=== PATIENT | female | born 1985 | race Caucasian/White ===

== ENCOUNTER 2017-10-23 14:04 | Emergency (ER) | payer MEDICAID, SELFPAY ==
[2017-10-23 14:05] VITALS: BP 114/75; PULSE 78; RESP 16; TEMP 36.6; O2SAT 99; BMI 27.9
--- NOTE | 2017-10-23 15:04 | ED.VISSUMM ---
- ER Visit Summary Date of Service: 10/23/17 Chief Complaint: Vaginal abscess History of Present Illness: The patient is a 32 F days for the past 3 days she has been gradually developing a swelling just to lateral to her left labia majora. She states she has never had anything like this before. She saw Dr. Evon downey reportedly 1 year ago for vaginal bleeding. She has not called anybody for this. No fevers. No prior history of MRSA or abscesses. Physical Examination: Afebrile vital signs are stable Gen: Well-nourished well-developed Head: Normocephalic atraumatic Eyes: Perrl EOMI ENT: TMs clear no rhinorrhea moist mucous membranes Neck: Supple no lymphadenopathy no JVD nontender CVS: Regular rate rhythm no murmurs normal S1-S2 Respiratory: No distress clear to auscultation bilaterally chest nontender Abdomen: Soft nontender nondistended normal bowel sounds no masses : There is a round less than dime size area of swelling just subcutaneous and lateral to the left labia majora. There is overlying erythema. There is no fluctuance. There is no pointing. Is tender to palpation. Back: Nontender Extremity: Nontender no edema Skin: Normal color no rash Neuro: alert orientated ?3 CN II-XII intact normal strength sensation reflexes gait cerebellar Psych: Normal affect normal mood Emergency Department Course and Treatment: I do not see a drainable abscess at this time. She will be started on Bactrim and Keflex and a few Alvaton for pain. She will need to follow-up with Dr. Evon downey. Impression: 1. Early left labial abscess This note was generated with [employer] dictation software. It may contain incorrect words, spelling, and punctuation that were not noted in review of the chart prior to signing ED Disposition - Plan for ED Patient: Disposition: Home or Assisted Living Chief Complaint: Abscess Instructions: ED Staph Infec Abx Tx Only Prescriptions: Oxycodone HCl/Acetaminophen [Percocet 5/325] 1 tab PO Q6H PRN PRN 3 Days #12 tab PRN Reason: Pain Cephalexin [Keflex] 500 mg PO Q6 #40 cap Smz/Tmp Ds [Bactrim Ds] 1 tab PO BID #10 tab Referrals: Care Physician,No Primary [Primary Care Provider] - Omayra Stratton MD [STAFF PHYSICIAN] - (call today to schedule follow up appointment)
[2017-10-23 15:26] VITALS: BP 113/76; PULSE 83; RESP 14; O2SAT 99
--- NOTE | 2017-10-23 15:49 | ED.RN ---
CALLED [facility] SPOKE WITH JDUI, TOLD HIM NORCO WAS TO BE CANCELLED, PT WILL BE ARRIVING WITH A PAPER RX FOR PERCOCET.
== END 2017-10-23 15:50 | disposition home or self-care (01) ==
PROVIDERS: Emergency Provider Emergency Medicine
DX: N76.4 Abscess of vulva (principal); Z72.0 Tobacco use
CPT/HCPCS: 99282

== ENCOUNTER 2017-12-05 11:24 | Emergency (ER) | payer MEDICAID, SELFPAY ==
[2017-12-05 11:26] VITALS: BP 126/69; PULSE 82; RESP 16; TEMP 36.9; O2SAT 98; BMI 28.1
--- NOTE | 2017-12-05 12:45 | RAD_ITS ---
STUDY: X-RAY - CERVICAL SPINE REASON FOR EXAM: Female, 32 years old. Several day history of right arm pain. TECHNIQUE: 4 view(s) of the cervical spine were obtained. COMPARISON: None FINDINGS: Normal anterior atlantoaxial articulation. Normal odontoid process. There is straightening of the normal cervical lordosis. Normal vertebral bodies and endplates. Mild degree of disc space narrowing at the C4-C5 level. Normal visualized intervertebral neuroforamina. The soft tissue structures are unremarkable. RAD/Cerv Spine 2 or 3 Views IMPRESSION: There is straightening of the normal cervical lordosis. Mild degree of disc space narrowing at the C4-C5 level. Electronically Signed: Vladimir Bullard MD at 13:49 EDT Tel [phone], Service support ,
--- NOTE | 2017-12-05 12:45 | RAD_ITS ---
STUDY: X-RAY - RIGHT SHOULDER REASON FOR EXAM: Female, 32 years old. Several day history of right upper extremity pain. TECHNIQUE: 4 view(s) of the shoulder. COMPARISON: None. FINDINGS: Normal glenohumeral articulation. Normal acromioclavicular joint. Normal acromion. Normal humeral head and visualized proximal humerus. The soft tissue structures are unremarkable. Normal visualized pulmonary apex. RAD/Shoulder min 2 Views IMPRESSION: Normal x-ray examination of the shoulder. Electronically Signed: Vladimir Bullard MD at 13:58 EDT Tel [phone], Service support ,
[2017-12-05 12:48] VITALS: BP 114/67; PULSE 73; RESP 16; O2SAT 97
--- NOTE | 2017-12-05 12:49 | ED.VISSUMM ---
- ER Visit Summary Date of Service: 12/05/17 Chief Complaint: Right shoulder pain History of Present Illness: The patient is a 32 F with right shoulder pain over 4 days. 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 Denies any other injuries. Physical Examination: Vitals unremarkable. Patient has diffuse tenderness to palpation over her C-spine. She also has diffuse tenderness to palpation of her right shoulder. Inspection is normal. Range of motion normal. Distal strength and sensation normal. No other pertinent findings. Test Results: I have low suspicion for fracture, but given her severe symptoms, x-rays were ordered. Will check C-spine and right shoulder. Emergency Department Course and Treatment: Patient treated with naproxen while awaiting results. Trace unremarkable. Continue anti-inflammatories at home. Muscle relaxers as needed. Follow-up with primary care for further care. Treatment Plan: As above Disposition: Discharge Impression: 1. Right shoulder strain 2. Cervical strain This note was generated with [employer] dictation software. It may contain incorrect words, spelling, and punctuation that were not noted in review of the chart prior to signing ED Disposition - Plan for ED Patient: Chief Complaint: Upper Extremity Injury Referrals: NOT,DEFINED [NON-STAFF] -
--- NOTE | 2017-12-05 14:32 | ED.DEP ---
ED Disposition - Plan for ED Patient: Chief Complaint: Upper Extremity Injury Instructions: ED Sprain Shoulder Prescriptions: Methocarbamol [Robaxin] 500 mg PO TID #9 tab Referrals: Herlinda Galvan DO [STAFF PHYSICIAN] -
--- NOTE | 2017-12-05 14:32 | ED.RN ---
pt upset because she said that she has been waiting for ever to be released. pt has calmed down and is happy with treatment plan
[2017-12-05 14:42] VITALS: BP 112/97; PULSE 75; RESP 14; O2SAT 98
--- NOTE | 2017-12-05 14:43 | ED.RN ---
pt is still asking to talk to education manager about dr mckinney. per carmen nurse information was given to pt. pt states that the dr should have been faster and done something sooner because it isn't fair to her and her sister that has an appt with the tv people to sit in the er for 2 hours
== END 2017-12-05 14:43 | disposition home or self-care (01) ==
LOC: ED 13:23
PROVIDERS: Emergency Provider Emergency Medicine
DX: S16.1XXA Strain of muscle, fascia and tendon at neck level, initial encounter (principal); S46.811A Strain of other muscles, fascia and tendons at shoulder and upper arm level, right arm, initial encounter; F17.210 Nicotine dependence, cigarettes, uncomplicated; X50.3XXA Overexertion from repetitive movements, initial encounter; Y93.89 Activity, other specified; Y92.89 Other specified places as the place of occurrence of the external cause; Y99.8 Other external cause status
CPT/HCPCS: 72040; 73030; 99282

== ENCOUNTER 2018-01-21 12:03 | Emergency (ER) | payer MEDICAID, SELFPAY ==
[2018-01-21 12:04] VITALS: BP 125/61; PULSE 82; RESP 18; TEMP 36.9; O2SAT 99; BMI 29.2
--- NOTE | 2018-01-21 12:29 | ED.DCSUM_ITS ---
- ER Visit Summary Date of Service: 01/21/18 Chief Complaint: Left groin] History of Present Illness: The patient is a 33 F [presents the emergency department with complaint of soft tissue swelling to her left groin for about a month. Patient states that she was seen in the emergency department about 3 weeks ago and was put on antibiotics however she did not follow up with anybody. She did not feel the antibiotics helped much. Patient denies any fevers. Patient complains of pain with walking.] Physical Examination: [HEENT-PERRLA, EOMI. Cranial nerves II through XII grossly intact. TMs clear. Mucous membranes moist. No adenopathy. Cardiovascular-regular rate and rhythm without murmur or ectopy Lungs-clear to auscultation, chest wall stable without crepitus or subcu emphysema Abdomen-normoactive bowel sounds, soft, nontender, no rebound or rigidity, no peritoneal signs. -patient has a soft tissue swelling in the left groin as well as another smaller soft tissue swelling to the left labia majora that is slightly tender to palpation. There is no cellulitis. The area is slightly fluctuant and tender to palpation. Extremities-intact ?4, normal range of motion, normal pulses, atraumatic] Test Results: [None indicated] Emergency Department Course and Treatment: [Patient was offered an incision and drainage to which she agreed. Area of the left groin sterilely draped and prepped. Cleansed with Shur-Clens. Anesthetized locally with 1% lidocaine total 2 cc used. Using an 11 blade a 1.5 cm incision was made into the larger of the 2 suspected abscesses and a 1 cm incision made onto the labia majora suspected abscess. Moderate purulent debris expressed. I used curved hemostats to undermine the soft tissues.] Clean dressing applied. Treatment Plan: [Patient will be referred to Dr. Persaud and will be started on clindamycin] Disposition: [Discharged home in stable condition] Impression: [Abscess with incision and drainage left groin] This note was generated with [employer] dictation software. It may contain incorrect words, spelling, and punctuation that were not noted in review of the chart prior to signing ED Disposition - Plan for ED Patient: Chief Complaint: Abscess Referrals: Care Physician,No Primary [Primary Care Provider] -
--- NOTE | 2018-01-21 12:29 | ED.DEP ---
ED Disposition - Plan for ED Patient: Chief Complaint: Abscess Instructions: ED Abscess IandD Prescriptions: Clindamycin HCl [Cleocin] 300 mg PO Q6H #40 cap Referrals: Care Physician,No Primary [Primary Care Provider] - Crispin Persaud MD [STAFF PHYSICIAN] - 5-7 Days
--- NOTE | 2018-01-21 12:31 | ED.DEP ---
ED Disposition - Plan for ED Patient: Chief Complaint: Abscess Instructions: ED Abscess IandD Prescriptions: Cephalexin [Keflex] 500 mg PO Q8 #30 cap Clindamycin HCl [Cleocin] 300 mg PO Q6H #40 cap Referrals: Crispin Persaud MD [STAFF PHYSICIAN] - 5-7 Days Care Physician,No Primary [Primary Care Provider] -
[2018-01-21 12:48] VITALS: RESP 16
== END 2018-01-21 12:48 | disposition home or self-care (01) ==
PROVIDERS: Emergency Provider Emergency Medicine
DX: L02.214 Cutaneous abscess of groin (principal); N76.4 Abscess of vulva; Z72.0 Tobacco use
CPT/HCPCS: 56405; 10060; 99282

== ENCOUNTER 2018-02-19 15:25 | Emergency (ER) | payer MEDICAID, SELFPAY ==
[2018-02-19 15:26] VITALS: BP 113/63; PULSE 86; RESP 16; TEMP 36.9; O2SAT 99; BMI 27.4
--- NOTE | 2018-02-19 15:36 | RAD_ITS ---
STUDY: X-RAY - LEFT WRIST REASON FOR EXAM: Female, 33 years old. Left wrist pain following a fall. TECHNIQUE: 3 view(s) of the wrist were obtained. COMPARISON: None. FINDINGS: Normal visualized distal radius and ulna. Normal radiocarpal articulation. Normal distal radioulnar articulation. Normal carpal bones. Normal carpal articulations. Normal carpometacarpal articulation of the thumb. Normal second through fifth carpometacarpal articulations. Normal visualized metacarpal bones. The soft tissue structures are unremarkable. RAD/Wrist min 3 Views IMPRESSION: Normal x-ray examination of the wrist. Electronically Signed: Vladimir Bullard MD at 15:50 EDT Tel [phone], Service support ,
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
--- NOTE | 2018-02-19 16:01 | ED.DEP ---
ED Disposition - Plan for ED Patient: Disposition: Home or Assisted Living Chief Complaint: Upper Extremity Injury Instructions: ED Contusion Upper Ext Prescriptions: Naproxen [Naprosyn] 500 mg PO BID PRN #20 tab Referrals: Care Physician,No Primary [Primary Care Provider] -
[2018-02-19] MEDS: oxyCODONE 5 MG Tablet PO (16:04)
== END 2018-02-19 16:20 | disposition home or self-care (01) ==
PROVIDERS: Emergency Provider Emergency Medicine
DX: S60.212A Contusion of left wrist, initial encounter (principal); V19.9XXA Pedal cyclist (driver) (passenger) injured in unspecified traffic accident, initial encounter; Y93.9 Activity, unspecified; Y92.9 Unspecified place or not applicable; Z72.0 Tobacco use
CPT/HCPCS: 73110; 99283

== ENCOUNTER 2018-04-06 08:38 | Emergency (ER) | payer SELFPAY ==
[2018-04-06 08:39] VITALS: BP 123/67; PULSE 84; RESP 15; TEMP 36.6; BMI 29.2
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
== END 2018-04-06 09:32 | disposition home or self-care (01) ==
LOC: ED 09:20
PROVIDERS: Emergency Provider Emergency Medicine
DX: M46.1 Sacroiliitis, not elsewhere classified (principal); Z72.0 Tobacco use
CPT/HCPCS: 99282

== ENCOUNTER 2018-11-14 08:12 | Emergency (ER) | payer MEDICAID, SELFPAY ==
[2018-11-14 08:12] VITALS: BP 124/72; PULSE 71; RESP 16; TEMP 36.8; O2SAT 100; BMI 26.6
--- NOTE | 2018-11-14 09:16 | RAD_ITS ---
STUDY: X-RAY - CERVICAL SPINE REASON FOR EXAM: Female, 33 years old. Shoulder and neck pain. TECHNIQUE: 2 view(s) of the cervical spine were obtained. COMPARISON: 3 views of the cervical spine on 4 films December 05, 2017; CT cervical spine September 06, 2017. FINDINGS: There are degenerative changes of the anterior atlantoaxial articulation. Normal odontoid process. There is straightening of the normal cervical lordosis. Mild anterior and posterior endplate spurring at C4-5 again noted. There is stable ntyl-vd-tzkydihy degenerative narrowing of the C4-5 intervertebral disc height. Normal visualized intervertebral bilateral facet articulations. The soft tissue structures are unremarkable. There is no demonstrated osseous destructive process or acute fracture of the cervical spine. RAD/Cerv Spine 2 or 3 Views IMPRESSION: Stable degenerative changes of the cervical spine at C4-5. Electronically Signed: Facundo Riley MD at 10:29 EDT , Service support ,
--- NOTE | 2018-11-14 09:16 | RAD_ITS ---
STUDY: X-RAY - LEFT SHOULDER REASON FOR EXAM: Female, 33 years old. Pain. TECHNIQUE: 4 view(s) of the shoulder including frontal internal and external rotation views. COMPARISON: None. FINDINGS: Normal glenohumeral articulation. Normal acromioclavicular joint. Normal acromion. Normal humeral head and visualized proximal humerus. The soft tissue structures are unremarkable. There is no demonstrated osseous destructive lesion or fracture. Normal visualized pulmonary apex. RAD/Shoulder min 2 Views IMPRESSION: Normal x-ray examination of the left shoulder. Electronically Signed: Facundo Riley MD at 10:27 EDT , Service support ,
[2018-11-14] MEDS: oxyCODONE 5 MG Tablet PO (09:27)
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
[2018-11-14 11:09] VITALS: PULSE 76; RESP 17; O2SAT 97
== END 2018-11-14 11:14 | disposition home or self-care (01) ==
PROVIDERS: Emergency Provider Emergency Medicine
DX: M54.12 Radiculopathy, cervical region (principal); M25.512 Pain in left shoulder; M25.511 Pain in right shoulder; Z72.0 Tobacco use
CPT/HCPCS: 72040; 73030; 99283

== ENCOUNTER 2019-01-17 15:41 | Emergency (ER) | payer MEDICAID, SELFPAY ==
[2019-01-17 15:44] VITALS: BP 102/67; PULSE 73; RESP 16; TEMP 36.6; O2SAT 99; BMI 27.4
--- NOTE | 2019-01-17 15:49 | RAD_ITS ---
STUDY: X-RAY - LEFT ANKLE REASON FOR EXAM: Female, 33 years old. Left ankle pain after fall. TECHNIQUE: 3 view(s) of the ankle. COMPARISON: None. FINDINGS: Normal visualized distal tibia and fibula. Normal medial and lateral malleoli. Normal tibiotalar articulation and ankle mortise. Normal visualized talus and calcaneus. The visualized subtalar, talonavicular, calcaneocuboid and tarsal articulations are normal. The soft tissue structures are unremarkable. RAD/Ankle min 3 Views IMPRESSION: Normal x-ray examination of the ankle. Electronically Signed: Maulik Beck MD at 16:05 EDT , Service support ,
--- NOTE | 2019-01-17 16:36 | ED.VISSUMM ---
- ER Visit Summary Date of Service: 01/17/19 Chief Complaint: Ankle pain History of Present Illness: The patient is a 33 F with left ankle pain. Patient twisted her ankle when her dog pulled her. Pain over the lateral side. Physical Examination: Tender to palpation and mild swelling of the left lateral malleolus. Neurovascular intact. Proximal tib-fib nontender. Foot nontender. Skin intact. Test Results: X-rays negative. Emergency Department Course and Treatment: X-rays performed. Patient is appropriate for outpatient care. Rest, ice, elevate. Anti-inflammatories for pain. Aircast and crutches. Follow-up with primary care. Treatment Plan: As above Disposition: Discharge Impression: 1. Left ankle sprain This note was generated with [employer] dictation software. It may contain incorrect words, spelling, and punctuation that were not noted in review of the chart prior to signing ED Disposition - Plan for ED Patient: Referrals: Care Physician,No Primary [Primary Care Provider] -
--- NOTE | 2019-01-17 16:38 | ED.DEP ---
ED Disposition - Plan for ED Patient: Instructions: ED Sprain Ankle W X Ray Prescriptions: Ibuprofen [Motrin] 800 mg PO TID PRN PRN #20 tab PRN Reason: Pain Referrals: Margy Michael [NON-STAFF] -
[2019-01-17] MEDS: Ibuprofen 600 MG Tablet PO (16:54)
[2019-01-17 16:58] VITALS: PULSE 76; RESP 17; O2SAT 97
== END 2019-01-17 16:59 | disposition home or self-care (01) ==
LOC: ED 16:43
PROVIDERS: Emergency Provider Emergency Medicine
DX: S93.402A Sprain of unspecified ligament of left ankle, initial encounter (principal); Z72.0 Tobacco use; X50.1XXA Overexertion from prolonged static or awkward postures, initial encounter; Y93.89 Activity, other specified; Y92.89 Other specified places as the place of occurrence of the external cause; Y99.8 Other external cause status
CPT/HCPCS: 73610; 99284

== ENCOUNTER 2019-03-16 05:55 | Emergency (ER) | payer SELFPAY ==
[2019-03-16 05:56] VITALS: BP 114/70; PULSE 72; RESP 17; TEMP 36.7; O2SAT 100; BMI 30.9
--- NOTE | 2019-03-16 06:13 | ED.DCSUM_ITS ---
- ER Visit Summary Date of Service: 03/16/19 Chief Complaint: Right eye watering History of Present Illness: The patient is a 34 F who presents with watering in her right eye. She complains of mild blurred vision but thinks this is just because the eye is watering. She denies any pain. No redness. She states she had a history of more symptoms once previously and was given an antibiotic eyedrop. Although in triage and notes that she woke with her eye deviated on further history she has a disconjugate gaze at baseline, this is not new. She otherwise denies any recent illness. There is no history of injury. Physical Examination: Afebrile vitals normal Although patient has a disconjugate gaze all extraocular movements appear to be intact there is not a palsy Normal eyelids no periorbital edema Normal conjunctivae no injection no chemosis no exudate Anterior chambers are deep and quiet Pupils are equal round reactive to light normal accommodation Test Results: Not indicated Emergency Department Course and Treatment: Although I do not really appreciate significant signs of conjunctivitis this could potentially be a mild conjunctivitis. We discussed antibiotic ophthalmic ointment or drops. The patient refused this. She is requesting oral antibiotics. I explained this would not be appropriate care. The patient became upset and eloped. Treatment Plan: [] Disposition: Discharge Impression: Right eye watering This note was generated with [employer] dictation software. It may contain incorrect words, spelling, and punctuation that were not noted in review of the chart prior to signing ED Disposition - Plan for ED Patient: Referrals: Care Physician,No Primary [Primary Care Provider] -
== END 2019-03-16 06:21 | disposition left against medical advice (07) ==
LOC: ED 06:18
PROVIDERS: Emergency Provider Emergency Medicine
DX: H57.89 Other specified disorders of eye and adnexa (principal); Z72.0 Tobacco use
CPT/HCPCS: 99282

== ENCOUNTER 2019-04-26 13:18 | Emergency (ER) | payer SELFPAY ==
[2019-04-26 13:20] VITALS: BP 120/76; PULSE 69; TEMP 36.8; O2SAT 99; BMI 34.7
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
[2019-04-26] MEDS: Morphine 4 MG/ML Syringe IV (14:47)
[2019-04-26] MEDS: Ondansetron 4 MG/2 ML Vial IV (14:47)
[2019-04-26 14:50] VITALS: BP 103/58; PULSE 70; RESP 18; O2SAT 100
[2019-04-26 15:23] VITALS: BP 99/64; PULSE 70; O2SAT 98
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
[2019-04-26 15:46] VITALS: BP 117/95
== END 2019-04-26 15:53 | disposition home or self-care (01) ==
PROVIDERS: Emergency Provider Emergency Medicine
DX: S16.1XXA Strain of muscle, fascia and tendon at neck level, initial encounter (principal); S09.90XA Unspecified injury of head, initial encounter; S40.011A Contusion of right shoulder, initial encounter; S30.0XXA Contusion of lower back and pelvis, initial encounter; Z72.0 Tobacco use; V47.6XXA Car passenger injured in collision with fixed or stationary object in traffic accident, initial encounter; Y93.I9 Activity, other involving external motion; Y92.410 Unspecified street and highway as the place of occurrence of the external cause; Y99.8 Other external cause status
CPT/HCPCS: 70450; 71045; 72100; 72125; 73030; 96374; 96375; 99284; A4216; J2405

== ENCOUNTER 2019-08-16 10:53 | Emergency (ER) | payer MEDICAID, SELFPAY ==
[2019-08-16 10:54] VITALS: BP 100/75; PULSE 87; RESP 20; TEMP 36.9; O2SAT 99; BMI 32.6
--- NOTE | 2019-08-16 11:12 | RAD_ITS ---
STUDY: X-RAY - RIGHT SHOULDER REASON FOR EXAM: Pain, no injury. TECHNIQUE: 3 view(s) of the shoulder. COMPARISON: Radiographs 04/26/2019. FINDINGS: Normal glenohumeral articulation. Normal acromioclavicular joint. Normal acromion. There is a subchondral radiolucency with adjacent sclerosis in the medial aspect of the humeral head suggestive of avascular necrosis. The soft tissue structures are unremarkable. Normal visualized pulmonary apex. RAD/Shoulder min 2 Views IMPRESSION: Avascular necrosis of the humeral head. Electronically Signed: Tigre Benedict MD at 11:59 EST Tel , Service support ,
--- NOTE | 2019-08-16 12:26 | ED.VIS.GEN ---
History of Present Illness Chief Complaint: Upper Extremity Injury Detail of Chief Complaint: Atraumatic right shoulder pain x1 year Informant: Patient Onset: Month(s) - For approximately 12 months Context: Gradual Onset Timing: Continuous Quality: Pain Location: Posterior right shoulder Current Severity: Mild Maximum Severity: Severe Worsened by: Movement especially abduction past 80 degrees Relieved by: Nothing Associated Symptoms: Tingling right arm this morning Narrative: Patient presents with posterior right shoulder pain that has been present for approximately 12 months. She was told this may represent a rotator cuff tear. She did not follow-up. She presents today because of increased pain and numbness of her right arm. The numbness and pain is not in a radicular distribution. There is no history of trauma. She denies cardiac respiratory symptoms. She denies fever, chills night sweats. She denies weight gain or weight loss. She denies any other musculoskeletal pain. Prior similar symptoms: Yes Recent Illness/Hospitalization: No - Past Medical History (1) No significant past medical history Status: Acute Past Medical History - Allergies and Home Meds Allergies/Adverse Reactions: Allergies coconut oil Allergy (Verified 08/16/19 10:56) Anaphylaxis fish oil Allergy (Verified 08/16/19 10:56) Anaphylaxis hydrocodone bitartrate [From Vicodin] Allergy (Verified 08/16/19 10:56) Itching penicillin Allergy (Verified 08/16/19 10:56) Hives seafood Allergy (Uncoded 08/16/19 10:56) Anaphylaxis Primary Care Physician: Care Physician,No Primary [Primary Care Provider] - Prior records reviewed: Yes Surgical History: noncontributory Lives: Alone Smoking Status: Current every day smoker Drugs: None Review of Systems General: Denies: Chills, Fever, Malaise, Subjective, Sweats, Weight loss, - Eyes: Denies: Visual changes - bilaterally, Blurred Vision - bilaterally ENT: Denies: Bilateral ear pain, Rhinorrhea, Sore throat Cardiovascular: Denies: Chest pain, Palpitations, Heart racing Respiratory: Denies: Dyspnea, Cough, Dyspnea on exertion Gastrointestinal: Denies: Nausea, Vomiting Musculoskeletal: Reports: Extremity Pain. Denies: Myalgias, Arthralgias, Neck pain, Back pain, Swelling Skin: Denies: Rash, Wounds Neurological: Denies: Weakness, Parasthesia, Numbness Hematologic: Denies: Easy bruising, Easy bleeding Physical Exam Vital Signs/Narrative: Vital Signs Temp Pulse Resp BP Pulse Ox 08/16/19 10:54 98.5 F 87 20 H 100/75 99 Inital Vital Signs reviewed: Yes General: Well nourished, Well developed, Obese, No Acute Distress Head: Normocephalic, Atraumatic Eyes: Perrl, EOMI. Negative for: Pale conjunctiva, Scleral icterus ENT: Moist mucous membranes, No rhinorrhea Neck: Supple, Nontender, No lymphadenopathy, No JVD Cardiovascular: Regular rate, Regular rhythm, No murmurs, Normal S1, Normal S2 Respiratory: No distress, CTA bilaterally, Chest nontender Back: Nontender, Normal Inspection Extremities: No edema, - - There is pain to palpation posterior right shoulder. Internal/external rotation causes minimal discomfort. Abduction past 90 degrees causes significant discomfort and patient resists. Axillary, median, radial and ulnar function intact. Biceps, brachialis and triceps reflex are 1-2+ and symmetric. Radial pulses 2+.. Negative for: Nontender Skin: Normal color, No rash, No Trauma. Negative for: Cyanosis, Diaphoresis, Jaundice Neurological: Alert, Oriented x3, Cranial nerves II-XII grossly intact, Normal Strength, Normal Sensation, Normal DTR Psychological: Depressed Diagnostic/Tx/Re-eval View x-ray of the right shoulder interpreted by me as negative. There is no calcification of the supraspinatus tendon. There is no degenerative changes noted. And joint space is normal. - Medical Decision Making With symptoms for approximately 12 months x-ray was obtained to determine if there is calcification supraspinatus tendon. None was noted. Patient was instructed not to take as much ibuprofen as she has. She states she took a bottle in the last 2 days. She denies black or maroon stool. She denies heartburn and indigestion. She was referred to Dr. Daryl Aragon who is on-call for orthopedics. ED Disposition - Plan for ED Patient: Disposition: Home or Assisted Living Diagnosis: Pain of right shoulder joint on movement Referrals: Care Physician,No Primary [Primary Care Provider] - Pavel Aragon MD [STAFF PHYSICIAN] - 5-7 Days
== END 2019-08-16 12:52 | disposition home or self-care (01) ==
PROVIDERS: Emergency Provider Emergency Medicine
DX: M25.511 Pain in right shoulder (principal); F17.200 Nicotine dependence, unspecified, uncomplicated; E66.9 Obesity, unspecified
CPT/HCPCS: 73030; 99282

== ENCOUNTER 2023-07-24 11:22 | Emergency (ER) | payer MEDICAID, SELFPAY ==
[2023-07-24 11:23] VITALS: BP 110/47; PULSE 71; RESP 16; TEMP 36; O2SAT 99; BMI 30.6
--- NOTE | 2023-07-24 11:37 | EX.ED.VIS.HA ---
HPI History of Present Illness Chief Complaint: Headache Informant: patient Narrative Narrative: Otherwise healthy 38-year-old female with a history of migraines, states she does not get them very frequently but this 1 feels similar to prior migraines, started about 3 days ago gradually no thunderclap or syncope, no obvious trigger, but she does not have obvious triggers from prior episodes either. Nauseated, today started vomiting, headache will go away which is why she presents to the ER, she states it is similar to her priors with occipital discomfort and retro-orbital, blurry vision, no focal neurologic symptoms or confusion, fevers, neck stiffness. No recent falls or injuries. [facility] Medical History (Updated 07/24/23 @ 13:[address] Franki Garcia MD) Migraines Home Medications NK 07/24/23 [History Last Taken Unknown] metronidazole 500 mg tablet 500 mg PO Q6H PRN nausea or migraine #20 tabs 07/24/23 [Rx Last Taken Unknown] sumatriptan succinate 25 mg tablet See Rx Instructions PO .COMPLEX #12 tabs 07/24/23 [Rx Last Taken Unknown] Allergy/AdvReac Type Severity Reaction Status Date / Time Fish Containing Products Allergy Severe Anaphylaxis Verified 08/01/22 16:06 [seafood] shellfish derived Allergy Severe Anaphylaxis Verified 08/01/22 16:06 [seafood - shellfish] amoxicillin Allergy Hives Verified 06/07/20 08:45 coconut oil Allergy Anaphylaxis Verified 06/07/20 08:45 fish oil Allergy Anaphylaxis Verified 06/07/20 08:45 hydrocodone bitartrate Allergy Itching Verified 06/07/20 08:45 [From Vicodin] penicillin Allergy Hives Verified 06/07/20 08:45 Family History Mother Cervical cancer Myocardial infarction CVA (cerebral vascular accident) Father Hypertension Myocardial infarction Arthritis Surgical History H/O: hysterectomy History of appendectomy History of cholecystectomy History of tonsillectomy and adenoidectomy Social History household members: significant other housing: house Smoking Status: Heavy Smoker (>10/day) Tobacco: How many years used: 10 alcohol intake: never substance use type: does not use what type of physical activity do you participate in: walking frequency: daily do you feel safe at home: Yes ROS ROS ED Constitutional Constitutional ED: Denies chills or fever(s) Eyes Eyes: Reports blurry vision; Denies diplopia ENT ENT ED: Denies ear pain or sore throat Cardiovascular Cardiovascular: Denies chest pain or palpitations Respiratory/Chest Respiratory/Chest: Denies cough or dyspnea Gastrointestinal Gastrointestinal: Reports nausea and vomiting; Denies abdominal pain or diarrhea Genitourinary Genitourinary ED: Denies dysuria or urinary frequency Musculoskeletal Musculoskeletal: Denies back pain or myalgias Integumentary Denies abscess or rash Neurologic Neurologic: Reports headache(s); Denies paresthesias or weakness EXAM Physical Exam Const Vital Signs: 07/24/23 11:23 Temperature 96.8 F L Temperature Source Temporal Pulse Rate 71 Respiratory Rate 16 Blood Pressure 110/47 L Blood Pressure Mean 68 Pulse Ox 99 Oxygen Delivery Method Room Air HEENT Reports normocephalic and moist mucous membranes atraumatic Eyes PERRL, EOMs intact bilaterally and conjunctivae normal Eyes Narrative: photophobia Neck no lymphadenopathy, supple and no meningeal signs Resp normal respiratory effort and clear to auscultation bilaterally GI non-tender and non-distended Palpation: soft Extremity normal to inspection and full ROM Neuro oriented x3 and CN's II-XII intact bilaterally Sensorium / Orientation: awake and alert Speech: speech normal Gait (Neuro): normal gait Motor Exam: strength 5/5 throughout Psych mental status grossly normal Skin Lesions: no lesions Rashes: no rashes MDM MDM MDM Narrative Medical decision making narrative: History and exam consistent with migraine headache. Patient without hypertension here, or indication for emergent CT of the head. She was treated with IV fluids, Toradol, Reglan, Benadryl, she did have some improvement without the headache being resolved. She was offered more medications, she declines and prefers to go home. She is never tried sumatriptan before I will give her prescription for that to use as needed as well as Reglan and advised to follow-up. Discharge Plan Triage Chief Complaint: Headache ED Provider: Franki Garcia Dx/Rx/DC Orders Clinical Impression: Migraine headache Instructions: ED, Migraine (Classical) Prescriptions: New sumatriptan succinate 25 mg tablet See Rx Instructions .ROUTE .COMPLEX Qty: 12 0RF Rx Instructions: take 1 tab at onset of headache; if no relief may repeat 1 tab after at least 2 hrs; max = 4 tabs/24 hr metronidazole [metronidazole] 500 mg tablet 500 mg PO Q6H PRN (Reason: nausea or migraine) Qty: 20 0RF No Action NK Primary Care Provider: Care Physician,No Primary Referrals: Ann Dozier MD [Med Staff - Mr Teacher] - As Needed (for primary care) Disposition Disposition: Home, Self Care
[2023-07-24] MEDS: DiphenhydrAMINE 50 MG/ML Syringe 25 MG IV (12:30)
[2023-07-24] MEDS: Metoclopramide 10 MG/2 ML Vial IV (12:30)
[2023-07-24] MEDS: Ketorolac 30 MG/ML Syringe IV (12:31)
[2023-07-24 13:00] VITALS: BP 134/78; PULSE 64; RESP 14; TEMP 36.4; O2SAT 99
== END 2023-07-24 13:41 | disposition home or self-care (01) ==
PROVIDERS: Emergency Provider Emergency Medicine; Visit Provider Emergency Medicine
DX: G43.909 Migraine, unspecified, not intractable, without status migrainosus (principal); F17.200 Nicotine dependence, unspecified, uncomplicated
CPT/HCPCS: 96374; 96375; 99282; J7030; A4216

== ENCOUNTER 2023-10-09 08:55 | Emergency (ER) | payer MEDICAID, SELFPAY ==
[2023-10-09 08:56] VITALS: BP 109/64; PULSE 96; RESP 14; TEMP 36.6; O2SAT 99; BMI 31.3
[2023-10-09] MEDS: Loperamide 2 MG Capsule 4 MG PO (09:12)
[2023-10-09] MEDS: Ondansetron 4 MG/2 ML Vial IV (09:13)
[2023-10-09] MEDS: 0.9% Normal Saline (1000mL) 1,000 ML 1000 ML IV (09:13)
[2023-10-09 09:37] LABS: Anion Gap 3 (5-15); BUN 3 mg/dL (7-18); BUN/Creat Ratio 3.7 RATIO (10-20); Calcium,Total 9.3 mg/dL (8.5-10.1); Chloride 106 mmol/L (98-107); Creatinine, Serum 0.81 mg/dL (0.55-1.02); EST Glomerular Filtration Rate 84 mL/min (>60); Est Glom Filt Rate - Afr Amer 101 mL/min (>60); Estimated Creatinine Clearance 100.63 ml/min; Glucose 127 mg/dL (74-106); Potassium 3.1 mmol/L (3.5-5.1); Sodium Level 141 mmol/L (136-145)
--- NOTE | 2023-10-09 10:11 | EX.ED.DYSGE1 ---
HPI History of Present Illness Chief Complaint: Headache Detail of Chief Complaint: Headache with nausea, vomiting diarrhea. Informant: patient Onset/Context/Timing Onset: Yesterday Context: Sudden Onset Timing: Continuous Quality: Global head pain, generalized crampy abdominal pain Location: Head and abdomen Current Severity: Mild Maximum Severity: Moderate Worsened by: Vomiting and diarrhea, nothing with respect to the headache Relieved by: Nothing for either Associated Symptoms Associated Symptoms: Subjective fever with chills. Narrative Narrative: Patient is a 38-year-old woman with history of migraine headaches who presents with global headache, nausea, vomiting diarrhea. She complains of chills. She does endorse thirst and dry mouth and orthostatic lightheadedness. She denies double vision, blurred vision loss of vision. Denies photophobia. She denies neck stiffness or pain. She denies chest discomfort, cough or shortness of breath. She denies hematemesis, melena hematochezia. She denies urologic symptoms i.e. dysuria, frequency, urgency or hematuria. If anything she has had decreased urine output. She not noted change in color of her urine. She does endorse myalgias. She denies any ill contacts. Prior similar symptoms: Yes Recent Illness/Hospitalization: No PFSH PFS Medical History Migraines Home Medications NK 07/24/23 [History Last Taken Unknown] metronidazole 500 mg tablet 500 mg PO Q6H PRN nausea or migraine #20 tabs 07/24/23 [Rx Last Taken Unknown] sumatriptan succinate 25 mg tablet See Rx Instructions PO .COMPLEX #12 tabs 07/24/23 [Rx Last Taken Unknown] Allergy/AdvReac Type Severity Reaction Status Date / Time Fish Containing Products Allergy Severe Anaphylaxis Verified 10/09/23 08:55 [seafood] shellfish derived Allergy Severe Anaphylaxis Verified 10/09/23 08:55 [seafood - shellfish] amoxicillin Allergy Hives Verified 10/09/23 08:55 coconut oil Allergy Anaphylaxis Verified 10/09/23 08:55 fish oil Allergy Anaphylaxis Verified 10/09/23 08:55 hydrocodone bitartrate Allergy Itching Verified 10/09/23 08:55 [From Vicodin] penicillin Allergy Hives Verified 10/09/23 08:55 Family History Mother Cervical cancer Myocardial infarction CVA (cerebral vascular accident) Father Hypertension Myocardial infarction Arthritis Surgical History H/O: hysterectomy History of appendectomy History of cholecystectomy History of tonsillectomy and adenoidectomy Social History household members: significant other housing: house Smoking Status: Heavy Smoker (>10/day) Tobacco: How many years used: 10 alcohol intake: never substance use type: does not use what type of physical activity do you participate in: walking frequency: daily do you feel safe at home: Yes ROS ROS ED Constitutional Constitutional ED: Reports chills and sweats; Denies fever(s) or subjective Eyes Eyes: Denies blurry vision, change in vision or diplopia ENT ENT ED: Denies ear pain, rhinorrhea or sore throat Cardiovascular Cardiovascular: Denies chest pain, orthopnea, palpitations, paroxysmal nocturnal dyspnea or racing heartbeat Respiratory/Chest Respiratory/Chest: Denies cough, dyspnea, dyspnea on exertion, orthopnea or paroxysmal nocturnal dyspnea Gastrointestinal Gastrointestinal: Reports abdominal pain, diarrhea, nausea, vomiting and other Details: 5 episodes of emesis since onset 10+ loose watery stools. Last watery stool 0530 ; Denies constipation or melena Genitourinary Genitourinary ED: Denies dysuria, hematuria or urinary frequency Musculoskeletal Musculoskeletal: Reports back pain; Denies arthralgias, myalgias or neck pain Integumentary Denies abscess, Abrasions or rash Neurologic Neurologic: Reports headache(s); Denies paresthesias or weakness Endocrine Endocrinology: Denies cold intolerance or heat intolerance Hematologic/Lymphatic Hematologic/Lymphatic: Reports systems reviewed and no addt'l complaints, except as documented EXAM Physical Exam Const Vital Signs: 10/09/23 08:56 10/09/23 09:25 10/09/23 10:54 Temperature 98 F Temperature Source Temporal Pulse Rate 96 73 Respiratory Rate 14 16 Respiratory Effort Normal Respiratory Pattern Normal Blood Pressure 109/64 116/71 Blood Pressure Mean 79 86 Pulse Ox 99 98 Oxygen Delivery Method Room Air Room Air Positive well nourished and well developed Constitutional Narrative: Patient appears ill but not toxic. General Appearance ED: well developed, NAD and pallor; Negative for cyanotic or diaphoretic HEENT Reports dry mucous membranes HEENT Narrative: Head is atraumatic and normocephalic. Ears normal. Nares patent. Posterior pharynx erythema or exudate. Uvula midline. No deviation of crepitation. No postnasal drainage. Mouth ED: Yes dry mucous membranes Mouth: dry mucous membranes Eyes PERRL and EOMs intact bilaterally General Eye ED: Negative for pale conjunctiva or scleral icterus Neck no lymphadenopathy, supple and no JVD Resp normal respiratory effort and clear to auscultation bilaterally Cardio regular rate, regular rhythm, S1 normal heart sound, S2 normal heart sound and no murmurs GI non-distended and no masses; Negative for normal to inspection, nondistended, normoactive bowel sounds, non-tender or hepatosplenomegaly Auscultation: normoactive bowel sounds Palpation: soft and tender epigastric Back/Spine no CVA tenderness Thoracic Spine / Upper Back: Negative for thoracic spinal tenderness Lumbar Spine / Lower Back: Negative for lumbar spinal tenderness Extremity normal to inspection Neuro oriented x3, CN's II-XII intact bilaterally and no sensory deficits noted Sensorium / Orientation: alert Motor Exam: strength 5/5 throughout Psych mental status grossly normal Skin no rashes or lesions noted, no wounds and No skin turgor normal General Skin Exam: pallor; Negative for elasticity normal or jaundice MDM MDM MDM Narrative Medical decision making narrative: Suspect patient has a viral cephalgia and may be worse because she has history of migraines. Clinically she has viral-like symptoms with nausea vomiting diarrhea. Clinically she is dehydrated. Will obtain basic metabolic panel to assess renal function and rule out hypokalemia in light of the amount of diarrhea she has had. IV fluids were administered. She was treated with Zofran for her nausea and Imodium for her diarrhea. Because her potassium is low she received a p.o. dose of potassium chloride, 40 mEq. History & Record Review Additional record(s) reviewed:: Prior ED visit and Prior labs Lab Data Attestation: I reviewed the patient's lab results. Labs: Laboratory Results - last 24 hr 10/09/23 09:15 Sodium 141 Potassium 3.1 L Chloride 106 Carbon Dioxide 32.0 Anion Gap 3 L BUN 3 L Creatinine 0.81 Estim Creat Clear Calc 100.63 Est GFR (MDRD) Af Amer 101 Est GFR (MDRD) Non-Af 84 BUN/Creatinine Ratio 3.7 L Glucose 127 H Calcium 9.3 Treatment and Re-Evaluation :: Patient was reassessed at 1118. She passed p.o. challenge. She has urinated. She reports she feels markedly better. Discharge Plan Triage Chief Complaint: Headache ED Provider: Darren Cobb Dx/Rx/DC Orders Clinical Impression: Nausea vomiting and diarrhea, Viral cephalgia, Mild dehydration, Acute generalized abdominal pain, Acute hypokalemia Instructions: ED Vomit Diarrhea Nonspec Adult Prescriptions: No Action NK sumatriptan succinate 25 mg tablet See Rx Instructions .ROUTE .COMPLEX Qty: 12 0RF Rx Instructions: take 1 tab at onset of headache; if no relief may repeat 1 tab after at least 2 hrs; max = 4 tabs/24 hr metronidazole [metronidazole] 500 mg tablet 500 mg PO Q6H PRN (Reason: nausea or migraine) Qty: 20 0RF Primary Care Provider: Care Physician,No Primary Referrals: Care Physician,No Primary [Primary Care Provider] - Doctor,Your [Non-Staff] - 3-5 Days if not improving Activity Restrictions/Additional Instructions: Take Imodium if you have any further diarrhea Advance diet as tolerated The name of your doctor is located on your insurance card issued to you by [facility] Disposition Disposition: Home, Self Care
[2023-10-09] MEDS: Potassium Chloride Oral Soln 20 MEQ/15 ML UDC 40 MEQ PO (10:49)
[2023-10-09 10:54] VITALS: BP 116/71; PULSE 73; RESP 16; O2SAT 98
[2023-10-09 11:42] VITALS: BP 114/70; PULSE 71; RESP 14; TEMP 36.1; O2SAT 98
== END 2023-10-09 11:43 | disposition home or self-care (01) ==
PROVIDERS: Emergency Provider Emergency Medicine; Visit Provider Emergency Medicine
DX: G44.89 Other headache syndrome (principal); E86.0 Dehydration; R11.2 Nausea with vomiting, unspecified; R19.7 Diarrhea, unspecified; E87.6 Hypokalemia; F17.200 Nicotine dependence, unspecified, uncomplicated; R10.84 Generalized abdominal pain
CPT/HCPCS: 80048; 96361; 96374; 99284; J7030; A4216; J2405